=== PATIENT | female | born 1995 | race Hispanic/Latino ===

== ENCOUNTER 2019-08-05 14:39 | Emergency (ER) | payer SELFPAY ==
[2019-08-05] MEDS ORDERED: MORPHINE 4 MG/ML SYR ONE (15:48)
[2019-08-05] MEDS ORDERED: ONDANSETRON 4 MG/2 ML VIAL ONE (15:48)
--- NOTE | 2019-08-05 16:28 | RAD REPORT ---
EXAM DESCRIPTION: US - Abdomen Exam Limited - 08/05/2019 4:13 pm CLINICAL HISTORY: Abdominal pain. COMPARISON: None. FINDINGS: 2 centimeter gallstone within the gallbladder neck. Gallbladder wall is upper limits robert l thickness. Small amount of sludge is present the gallbladder. Gallbladder is distended. The biliary tree is normal caliber. IMPRESSION: Cholelithiasis with gallbladder distention
[2019-08-05 16:42] LABS: Absolute Lymphocytes (CBC) 1.9 K/uL (0.7-4.9); Hematocrit 34.8 % (36.0-45.0); Lymphocytes % 19.4 % (15.3-44.8); MPV 9.1 fL (7.6-11.3)
[2019-08-05 16:52] LABS: Albumin 4.4 g/dL (3.4-5.0); Bilirubin Direct 0.2 mg/dL (0-0.2); Bilirubin Total 0.9 mg/dL (0.2-1.0); Potassium 3.6 mmol/L (3.5-5.1)
--- NOTE | 2019-08-05 17:08 | ER ---
Nurse's Notes [facility] Name: Carlita Bosch Age: 23 yrs Sex: Female : 1995 Arrival Date: 08/05/2019 Time: 14:48 Bed 16 Private MD: Unknown, Unknown Diagnosis: Cholelithiasis Presentation: 08/05 14:59 Presenting complaint: Patient states: RUQ pain that radiates to the back, n/v x 1 week. sv denies urinary problems. Transition of care: patient was not received from another setting of care. Onset of symptoms was July 29, 2019. Risk Assessment: Do you want to hurt yourself or someone else? Patient reports no desire to harm self or others. Care prior to arrival: None. 14:59 Method Of Arrival: Ambulatory sv 14:59 Acuity: ASIM 3 sv 15:03 Initial Sepsis Screen: Does the patient meet any 2 criteria? No. Patient's initial rb1 sepsis screen is negative. Does the patient have a suspected source of infection? No. Patient's initial sepsis screen is negative. Triage Assessment: 14:59 General: Appears in no apparent distress. uncomfortable, Behavior is calm, cooperative, sv appropriate for age. Pain: Complains of pain in right upper quadrant Pain radiates to right mid back. Neuro: Level of Consciousness is awake, alert, obeys commands, Gait is steady. Respiratory: Respiratory effort is even, unlabored. 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 - Social history:: Smoking status: Patient/guardian denies using tobacco. - Ebola Screening: : Patient negative for fever greater than or equal to 101.5 degrees Fahrenheit, and additional compatible Ebola Virus Disease symptoms. Screenin:03 Abuse screen: Denies threats or abuse. Nutritional screening: No deficits noted. rb1 Tuberculosis screening: No symptoms or risk factors identified. Fall Risk None identified. Assessment: 15:03 General: Appears in no apparent distress. Behavior is calm, cooperative, Denies fever. rb1 Pain: Complains of pain in right upper quadrant Pain radiates to right mid back Pain currently is 7 out of 10 on a pain scale. Neuro: Level of Consciousness is awake, alert, obeys commands, Oriented to person, place, time, situation. Cardiovascular: Capillary refill < 3 seconds is brisk in bilateral fingers. Respiratory: Airway is patent Respiratory effort is even, unlabored, Respiratory pattern is regular, symmetrical. GI: Reports nausea. : No signs and/or symptoms were reported regarding the genitourinary system. Derm: Skin is pink, warm \T\ dry. 16:00 Reassessment: Patient appears in no apparent distress at this time. No changes from rb1 previously documented assessment. 16:58 Reassessment: Patient appears in no apparent distress at this time. Patient and/or rb1 family updated on plan of care and expected duration. Pain level reassessed. Patient is alert, oriented x 3, equal unlabored respirations, skin warm/dry/pink. 17:32 Reassessment: Patient appears in no apparent distress at this time. No changes from rb1 previously documented assessment. Vital Signs: 15:00 BP 126 / 79; Pulse 100; Resp 20; Temp 98.8; Pulse Ox 98% ; Weight 90.72 kg; Height 5 sv ft. 6 in. (167.64 cm); Pain 10/10; 16:28 BP 116 / 75; Pulse 96; Resp 17; Temp 98.2(O); Pulse Ox 99% on R/A; mh5 17:24 BP 119 / 71; Pulse 92; Resp 17; Temp 98.4(O); Pulse Ox 100% on R/A; rb1 15:00 Body Mass Index 32.28 (90.72 kg, 167.64 cm) sv ED Course: 14:48 Patient arrived in ED. ag5 14:48 Unknown, Unknown is Private Physician. ag5 15:00 Triage completed. sv 15:00 Aldair Bang PA is PHCP. jr8 15:00 Rayshawn Meza MD is Attending Physician. jr8 15:00 Deneen Candelario, JODY is Primary Nurse. rb1 15:01 Arm band placed on. sv 16:25 Patient has correct armband on for positive identification. Bed in low position. Call [facility] light in reach. Side rails up X 1. Adult w/ patient. Warm blanket given. Pulse ox on. NIBP on. 16:25 Initial lab(s) drawn, by hi, sent to lab. Inserted saline lock: 22 gauge in left [facility] antecubital area, using aseptic technique. Blood collected. 16:26 Basic Metabolic Panel Sent. 5 16:26 CBC with Diff Sent. 5 16:26 Creatinine for Radiology Sent. 5 16:26 Hepatic Function Sent. [facility] 16:26 Lipase Sent. [facility] 16:32 US Abdomen Limited In Process Unspecified. EDMI 17:07 Evan Schneider MD is Referral Physician. jr8 17:36 No provider procedures requiring assistance completed. IV discontinued, intact, rb1 bleeding controlled, No redness/swelling at site. Pressure dressing applied. Administered Medications: 16:28 Drug: morphine 4 mg Route: IVP; Site: left antecubital; rb1 16:45 Follow up: Response: No adverse reaction; Pain is decreased rb1 16:28 Drug: Zofran 4 mg Route: IVP; Site: left antecubital; rb1 16:43 Follow up: Response: No adverse reaction; Nausea is decreased [facility] Outcome: 17:08 Discharge ordered by . jr8 17:36 Patient left the ED. rb1 17:36 Discharged to home ambulatory, with significant other. rb1 17:36 Condition: stable 17:36 Discharge instructions given to patient, Instructed on discharge instructions, follow up and referral plans. medication usage, Demonstrated understanding of instructions, follow-up care, medications, Prescriptions given X 2. Signatures: Dispatcher [employer] [facility] Heather Acosta RN RN sv Roszak, Josh, PA PA 8 Deneen Candelario RN RN [facility] Marycarmen Schneider [facility] David Herrera [facility] Corrections: (The following items were deleted from the chart) 17:53 17:48 Patient left the ED. rb1 rb1
--- NOTE | 2019-08-05 17:09 | EDPHYS ---
Physician Documentation [facility] Name: Carlita Bosch Age: 23 yrs Sex: Female : 1995 Arrival Date: 08/05/2019 Time: 14:48 Bed 16 Private MD: Unknown, Unknown ED Physician Rayshawn Meza HPI: 08/05 16:49 This 23 yrs old Female presents to ER via Ambulatory with complaints of jr8 abdominal pain, back pain. 16:49 The patient presents with abdominal pain in the right upper quadrant. Onset: The jr8 symptoms/episode began/occurred acutely, today. The symptoms radiate to right back. Associated signs and symptoms: Pertinent positives: nausea and vomiting. The symptoms are described as stabbing. Modifying factors: The symptoms are alleviated by nothing, the symptoms are aggravated by food. Severity of pain: At its worst the pain was moderate in the emergency department the pain is unchanged. The patient has not recently seen a physician. 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 - Social history:: Smoking status: Patient/guardian denies using tobacco. - Ebola Screening: : Patient negative for fever greater than or equal to 101.5 degrees Fahrenheit, and additional compatible Ebola Virus Disease symptoms. ROS: 16:49 Constitutional: Negative for fever, chills, and weight loss. jr8 16:49 Abdomen/GI: Positive for abdominal pain, nausea and vomiting, Negative for diarrhea, constipation, abdominal cramps, abdominal distension, hematemesis, black/tarry stool, rectal pain, rectal bleeding, bowel incontinence, flatulence. 16:49 All other systems are negative. Exam: 16:49 Eyes: Pupils equal round and reactive to light, extra-ocular motions intact. Lids and jr8 lashes normal. Conjunctiva and sclera are non-icteric and not injected. Cornea within normal limits. Periorbital areas with no swelling, redness, or edema. ENT: Nares patent. No nasal discharge, no septal abnormalities noted. Tympanic membranes are normal and external auditory canals are clear. Oropharynx with no redness, swelling, or masses, exudates, or evidence of obstruction, uvula midline. Mucous membranes moist. Neck: Trachea midline, no thyromegaly or masses palpated, and no cervical lymphadenopathy. Supple, full range of motion without nuchal rigidity, or vertebral point tenderness. No Meningismus. Cardiovascular: Regular rate and rhythm with a normal S1 and S2. No gallops, murmurs, or rubs. Normal PMI, no JVD. No pulse deficits. Respiratory: Lungs have equal breath sounds bilaterally, clear to auscultation and percussion. No rales, rhonchi or wheezes noted. No increased work of breathing, no retractions or nasal flaring. Back: No spinal tenderness. No costovertebral tenderness. Full range of motion. Skin: Warm, dry with normal turgor. Normal color with no rashes, no lesions, and no evidence of cellulitis. MS/ Extremity: Pulses equal, no cyanosis. Neurovascular intact. Full, normal range of motion. Neuro: Awake and alert, GCS 15, oriented to person, place, time, and situation. Cranial nerves II-XII grossly intact. Motor strength 5/5 in all extremities. Sensory grossly intact. Cerebellar exam normal. Normal gait. 16:49 Abdomen/GI: Inspection: obese Bowel sounds: active, all quadrants, Palpation: soft, in all quadrants, moderate abdominal tenderness, in the right upper quadrant, mass, is not appreciated, rebound tenderness, is not appreciated, voluntary guarding, is not appreciated, involuntary guarding, is not appreciated, no appreciated organomegaly, Indicators: McBurney's point is not tender, Hanna's sign is positive, Rovsing's sign is negative, Liver: tenderness, is not appreciated. Vital Signs: 15:00 BP 126 / 79; Pulse 100; Resp 20; Temp 98.8; Pulse Ox 98% ; Weight 90.72 kg; Height 5 sv ft. 6 in. (167.64 cm); Pain 10/10; 16:28 BP 116 / 75; Pulse 96; Resp 17; Temp 98.2(O); Pulse Ox 99% on R/A; mh5 17:24 BP 119 / 71; Pulse 92; Resp 17; Temp 98.4(O); Pulse Ox 100% on R/A; rb1 15:00 Body Mass Index 32.28 (90.72 kg, 167.64 cm) sv MDM: 15:32 Patient medically screened. jr8 17:06 Data reviewed: vital signs, nurses notes, lab test result(s), radiologic studies, jr8 ultrasound. Data interpreted: Pulse oximetry: on room air is 99 %. Interpretation: normal. Counseling: I had a detailed discussion with the patient and/or guardian regarding: the historical points, exam findings, and any diagnostic results supporting the discharge/admit diagnosis, lab results, radiology results, the need for outpatient follow up, a general surgeon, to return to the emergency department if symptoms worsen or persist or if there are any questions or concerns that arise at home. Response to treatment: the patient's symptoms have markedly improved after treatment. ED course: Patient non toxic. No acute abdomen on physical exam and reexamination. Labs WNL. Detailed discussion with patient about US findings. Patient will f/u with general surgery and call tomorrow to get next available appointment. Knows to come back if worse or she starts running fever . 08/05 15:32 Order name: Basic Metabolic Panel; Complete Time: 17:00 8 08/05 15:32 Order name: CBC with Diff; Complete Time: 17:00 jr8 08/05 15:32 Order name: Creatinine for Radiology; Complete Time: 17:00 jr8 08/05 15:32 Order name: Hepatic Function; Complete Time: 17:00 jr8 08/05 15:32 Order name: Lipase; Complete Time: 17:00 jr8 08/05 15:32 Order name: US Abdomen Limited; Complete Time: 16:50 8 08/05 15:32 Order name: IV Saline Lock; Complete Time: 16:26 jr8 08/05 15:32 Order name: Labs collected and sent; Complete Time: 16:26 jr8 Administered Medications: 16:28 Drug: morphine 4 mg Route: IVP; Site: left antecubital; rb1 16:45 Follow up: Response: No adverse reaction; Pain is decreased rb1 16:28 Drug: Zofran 4 mg Route: IVP; Site: left antecubital; rb1 16:43 Follow up: Response: No adverse reaction; Nausea is decreased rb1 Disposition: 08/06 07:14 Co-signature as Attending Physician, Rayshawn Meza MD I agree with the assessment and kdr plan of care. Disposition: 08/05/19 17:08 Discharged to Home. Impression: Cholelithiasis. - Condition is Stable. - Discharge Instructions: Cholelithiasis. - Prescriptions for Tylenol- Codeine #3 300-30 mg Oral Tablet - take 2 tablets by ORAL route every 6 hours As needed; 12 tablet. Zofran 4 mg Oral Tablet - take 1 tablet by ORAL route every 12 hours As needed; 20 tablet. - SBAR form, Medication Reconciliation Form, Thank You Letter, Antibiotic Education, Prescription Opioid Use form. - Follow up: Evan Schneider MD; When: Tomorrow; Reason: Recheck today's complaints, Continuance of care, Re-evaluation by your physician. - Problem is new. - Symptoms have improved. Signatures: Dispatcher [employer] Heather Calloway, RN RN Rayshawn Edmondson MD MD [facility] Aldair Bang PA PA jr8 Deneen Candelario, RN RN rb1 Corrections: (The following items were deleted from the chart) 08/05 17:48 17:08 08/05/2019 17:08 Discharged to Home. Impression: Cholelithiasis. Condition is rb1 Stable. Forms are Medication Reconciliation Form, Thank You Letter, Antibiotic Education, Prescription Opioid Use. Follow up: Evan Schneider; When: Tomorrow; Reason: Recheck today's complaints, Continuance of care, Re-evaluation by your physician. Problem is new. Symptoms have improved. jr8
[2019-08-05 18:54] VITALS: BP 116/75; TEMP 98.2; O2SAT 99
== END 2019-08-05 17:48 | disposition home or self-care (01) ==
LOC: ER 14:39
DX: K80.20 Calculus of gallbladder without cholecystitis without obstruction (principal)
CPT/HCPCS: 36415; 76705; 80048; 80076; 83690; 85025; 96374; 96375; 99284; J2405

== ENCOUNTER 2019-08-07 21:01 | Observation (INO) | payer SELFPAY ==
[2019-08-07] MEDS ORDERED: ONDANSETRON 4 MG/2 ML VIAL ONE (21:33)
[2019-08-07] MEDS ORDERED: NA CHLORIDE 0.9% 1,000 ML ONE (21:33)
[2019-08-07] MEDS ORDERED: MORPHINE 4 MG/ML SYR ONE (21:33)
[2019-08-07 21:58] LABS: Absolute Lymphocytes (CBC) 2.8 K/uL (0.7-4.9); Basophils % 0.7 % (0-1.3); Lymphocytes % 25.1 % (15.3-44.8); MPV 9.1 fL (7.6-11.3); RBC Red Blood Cell Count 4.74 M/uL (3.86-4.86)
[2019-08-07 22:03] LABS: Albumin 4.5 g/dL (3.4-5.0); Bilirubin Direct 0.2 mg/dL (0-0.2); Bilirubin Total 0.8 mg/dL (0.2-1.0); Potassium 3.2 mmol/L (3.5-5.1)
[2019-08-07] MEDS ORDERED: PIPER/TAZO/NS 3.375gm 3.375 GM/100 ML BAG ONE (22:29)
--- NOTE | 2019-08-08 00:13 | ER ---
Nurse's Notes [facility] Name: Carlita Bosch Age: 23 yrs Sex: Female : 1995 Arrival Date: 08/07/2019 Time: 21:06 Bed 19 Private MD: Diagnosis: Cholelithiasis;Right upper quadrant pain;Right upper quadrant abdominal tenderness Presentation: 08/07 21:07 Presenting complaint: Patient states: dx with gall stones two days ago, pain is worse, la1 not tolerating PO. Transition of care: patient was not received from another setting of care. Onset of symptoms was August 07, 2019. Risk Assessment: Do you want to hurt yourself or someone else? Patient reports no desire to harm self or others. Initial Sepsis Screen: Does the patient meet any 2 criteria? HR > 90 bpm. Care prior to arrival: None. 21:07 Method Of Arrival: Ambulatory la1 21:07 Acuity: ASIM 3 la1 22:42 Initial Sepsis Screen: Does the patient have a suspected source of infection? No. lp1 Patient's initial sepsis screen is negative. 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 - Social history:: Smoking status: Patient/guardian denies using tobacco. - Ebola Screening: : No symptoms or risks identified at this time. Screenin:15 Abuse screen: Denies threats or abuse. Denies injuries from another. Nutritional lp1 screening: No deficits noted. Tuberculosis screening: No symptoms or risk factors identified. Fall Risk None identified. Assessment: 21:20 General: Appears uncomfortable, Behavior is appropriate for age. Pain: Complains of lp1 pain in epigastric area Pain radiates to back Pain currently is 8 out of 10 on a pain scale. Neuro: Level of Consciousness is awake, alert, obeys commands, Oriented to person, place, time, situation. Cardiovascular: Patient's skin is warm and dry. Respiratory: Respiratory effort is even, unlabored. GI: Abdomen is round non-distended, Bowel sounds present X 4 quads. Abdomen is tender to palpation in epigastric area. : No signs and/or symptoms were reported regarding the genitourinary system. EENT: No signs and/or symptoms were reported regarding the EENT system. Derm: Skin is pink, warm \T\ dry. Musculoskeletal: No deficits noted. 22:15 Reassessment: Patient appears in no apparent distress at this time. Patient is alert, lp1 oriented x 3, equal unlabored respirations, skin warm/dry/pink. Patient states feeling better. Patient states symptoms have improved. 22:39 Reassessment: Patient appears in no apparent distress at this time. Patient states lp1 tolerable pain radiating to back. 23:30 Reassessment: Patient appears in no apparent distress at this time. Patient and/or lp1 family updated on plan of care and expected duration. Pain level reassessed. Patient is alert, oriented x 3, equal unlabored respirations, skin warm/dry/pink. 23:45 Reassessment: Provider at bedside to discuss results with patient and plan of care. lp1 Vital Signs: 21:08 BP 129 / 88; Pulse 110; Resp 16; Temp 98.2; Pulse Ox 100% on R/A; Weight 104.33 kg; la1 22:38 BP 110 / 82; Pulse 79; Resp 18; Pulse Ox 100% on R/A; Pain 5/10; lp1 23:30 BP 111 / 76; Pulse 86; Resp 18; Pulse Ox 98% on R/A; lp1 11/10 00:39 BP 120 / 88; Pulse 90; Resp 18; Temp 98.1(O); Pulse Ox 99% on R/A; lp1 ED Course: 08/07 21:06 Patient arrived in ED. cf2 21:08 Triage completed. la1 21:09 Arm band placed on left wrist. la1 21:13 Aldair Bang PA is PHCP. jr8 21:13 Rayshawn Meza MD is Attending Physician. jr8 21:30 Lou Gupta RN is Primary Nurse. lp1 21:38 Patient has correct armband on for positive identification. la1 21:38 No provider procedures requiring assistance completed. Inserted saline lock: 20 gauge la1 in right antecubital area, using aseptic technique. Blood collected. 08/08 00:11 Ashley Mosley MD is Hospitalizing Provider. jr8 00:33 Patient admitted, IV remains in place. lp1 Administered Medications: 08/07 21:39 Drug: morphine 4 mg Route: IVP; Site: right antecubital; la1 22:00 Follow up: Response: Pain is decreased; RASS: Alert and Calm (0) lp1 21:39 Drug: Zofran 4 mg Route: IVP; Site: right antecubital; la1 22:00 Follow up: Response: No adverse reaction lp1 21:39 Drug: NS 0.9% 1000 ml Route: IV; Rate: 1000 ml; Site: right antecubital; la1 22:23 Follow up: IV Status: Completed infusion; IV Intake: 1000ml lp1 22:38 Drug: Zosyn 3.375 grams Route: IVPB; Infused Over: 60 mins; Site: right antecubital; lp1 23:40 Follow up: IV Status: Completed infusion; IV Intake: 100ml lp1 Intake: 22:23 IV: 1000ml; Total: 1000ml. lp1 23:40 IV: 100ml; Total: 1100ml. lp1 Outcome: 08/08 00:12 Decision to Hospitalize by Provider. ashley 00:33 Condition: stable lp1 00:33 Instructed on the need for admit. 00:38 Admitted to Tele family with patient, via wheelchair, room 424, with chart, Report lp1 called to JODY silverio 00:50 Patient left the ED. lp1 Signatures: Lou Gupta, RN RN lp1 Aldair Bang PA PA jrSaul Guerrier RN RN la1 Missy Hsieh 2
--- NOTE | 2019-08-08 00:13 | EDPHYS ---
Physician Documentation [facility] Name: Carlita Bosch Age: 23 yrs Sex: Female : 1995 Arrival Date: 08/07/2019 Time: 21:06 Bed 19 Private MD: ED Physician Rayshawn Meza HPI: 08/07 23:19 This 23 yrs old Female presents to ER via Ambulatory with complaints of jr8 Abdominal Pain. 23:19 The patient presents with abdominal pain in the right upper quadrant. Onset: The jr8 symptoms/episode began/occurred gradually, 2 day(s) ago. The symptoms do not radiate. Associated signs and symptoms: Pertinent positives: nausea and vomiting. The symptoms are described as stabbing. Modifying factors: The symptoms are alleviated by nothing, the symptoms are aggravated by food. Severity of pain: At its worst the pain was moderate in the emergency department the pain has improved mildly. The patient has experienced a previous episode. The patient has been recently seen by a physician: The patient has been recently seen at the [facility] Emergency Department, this week, for similar complaints labs were performed, an ultrasound was performed, given IM/IV antibiotics, was given a prescription for pain medications, was given a prescription for an antiemetic, the patient was told to return for a recheck. Patient seen and diagnosed with cholelithiasis a few days ago. Was doing well until yesterday. Stated that pain came back and now has not been able to keep anything down . DENSITOMETRIST: 21:09 LMP 07/23/2019 la1 Historical: - Allergies: 21:08 No Known Allergies; la1 - PMHx: 21:08 None; la1 - Immunization history:: Adult Immunizations up to date. - Social history:: Smoking status: Patient/guardian denies using tobacco. - Ebola Screening: : No symptoms or risks identified at this time. ROS: 23:19 Eyes: Negative for injury, pain, redness, and discharge, ENT: Negative for injury, jr8 pain, and discharge, Neck: Negative for injury, pain, and swelling, Cardiovascular: Negative for chest pain, palpitations, and edema, Respiratory: Negative for shortness of breath, cough, wheezing, and pleuritic chest pain, Back: Negative for injury and pain, MS/Extremity: Negative for injury and deformity, Skin: Negative for injury, rash, and discoloration, Neuro: Negative for headache, weakness, numbness, tingling, and seizure. 23:19 Abdomen/GI: Positive for abdominal pain, nausea and vomiting, Negative for diarrhea, constipation, abdominal cramps, abdominal distension, anorexia, dysphagia, hematemesis, black/tarry stool, rectal pain, rectal bleeding, bowel incontinence, flatulence. Exam: 23:19 Eyes: Pupils equal round and reactive to light, extra-ocular motions intact. Lids and jr8 lashes normal. Conjunctiva and sclera are non-icteric and not injected. Cornea within normal limits. Periorbital areas with no swelling, redness, or edema. ENT: Nares patent. No nasal discharge, no septal abnormalities noted. Tympanic membranes are normal and external auditory canals are clear. Oropharynx with no redness, swelling, or masses, exudates, or evidence of obstruction, uvula midline. Mucous membranes moist. Cardiovascular: Regular rate and rhythm with a normal S1 and S2. No gallops, murmurs, or rubs. Normal PMI, no JVD. No pulse deficits. Respiratory: Lungs have equal breath sounds bilaterally, clear to auscultation and percussion. No rales, rhonchi or wheezes noted. No increased work of breathing, no retractions or nasal flaring. Abdomen/GI: Soft with mild tenderness to RUQ. Negative Hanna sign. Normal bowel sounds. No distension or tympany. No guarding or rebound. Back: No spinal tenderness. No costovertebral tenderness. Full range of motion. Skin: Warm, dry with normal turgor. Normal color with no rashes, no lesions, and no evidence of cellulitis. MS/ Extremity: Pulses equal, no cyanosis. Neurovascular intact. Full, normal range of motion. Neuro: Awake and alert, GCS 15, oriented to person, place, time, and situation. Cranial nerves II-XII grossly intact. Motor strength 5/5 in all extremities. Sensory grossly intact. Cerebellar exam normal. Normal gait. Vital Signs: 21:08 BP 129 / 88; Pulse 110; Resp 16; Temp 98.2; Pulse Ox 100% on R/A; Weight 104.33 kg; la1 22:38 BP 110 / 82; Pulse 79; Resp 18; Pulse Ox 100% on R/A; Pain 5/10; lp1 23:30 BP 111 / 76; Pulse 86; Resp 18; Pulse Ox 98% on R/A; lp1 08/08 00:39 BP 120 / 88; Pulse 90; Resp 18; Temp 98.1(O); Pulse Ox 99% on R/A; lp1 MDM: 08/07 21:13 Patient medically screened. [facility] 08/08 00:10 Data reviewed: vital signs, nurses notes, lab test result(s). Data interpreted: Pulse 8 oximetry: on room air is 98 %. Interpretation: normal. Counseling: I had a detailed discussion with the patient and/or guardian regarding: the historical points, exam findings, and any diagnostic results supporting the discharge/admit diagnosis, lab results, the need for further work-up and treatment in the hospital. ED course: Patient still nauseated. Pain improved but not gone. Called Dr. Jones who will see patient. Admit to medicine. . 08/07 21:13 Order name: Basic Metabolic Panel; Complete Time: 22:03 [facility] 08/07 21:13 Order name: CBC with Diff; Complete Time: 22:03 [facility] 08/07 21:13 Order name: Creatinine for Radiology; Complete Time: 22:07 [facility] 08/07 21:13 Order name: Hepatic Function; Complete Time: 22: [facility] 08/07 21:13 Order name: Lipase; Complete Time: 22: [facility] 08/07 21:13 Order name: IV Saline Lock; Complete Time: 21:39 [facility] 08/07 21:13 Order name: Labs collected and sent; Complete Time: :39 [facility] 08/08 00:28 Order name: CONS Physician Consult EDMS Administered Medications: 08/07 21:39 Drug: morphine 4 mg Route: IVP; Site: right antecubital; la1 22:00 Follow up: Response: Pain is decreased; RASS: Alert and Calm (0) lp1 21:39 Drug: Zofran 4 mg Route: IVP; Site: right antecubital; la1 22:00 Follow up: Response: No adverse reaction lp1 21:39 Drug: NS 0.9% 1000 ml Route: IV; Rate: 1000 ml; Site: right antecubital; la1 22:23 Follow up: IV Status: Completed infusion; IV Intake: 1000ml lp1 22:38 Drug: Zosyn 3.375 grams Route: IVPB; Infused Over: 60 mins; Site: right antecubital; lp1 23:40 Follow up: IV Status: Completed infusion; IV Intake: 100ml lp1 Disposition: 08/08 06:17 Co-signature as Attending Physician, Rayshawn Meza MD I agree with the assessment and kdr plan of care. Disposition: 08/08/19 00:12 Hospitalization ordered by Ashley Mosley for Observation. Preliminary diagnosis are Cholelithiasis, Right upper quadrant pain, Right upper quadrant abdominal tenderness. - Bed requested for Telemetry/MedSurg (observation). - Status is Observation. lp1 - Condition is Stable. - Problem is new. - Symptoms have improved. UTI on Admission? No Signatures: Dispatcher [employer] EDDinah Jernigan RN RN aa1 Rayshawn Meza MD MD kdr Pena, Laura, RN RN lp1 Aldair Bang PA PA jr8 Saul Cadena RN RN la1 Corrections: (The following items were deleted from the chart) 00:16 00:12 Hospitalization Ordered by Ashley Mosley MD for Observation. Preliminary aa1 diagnosis is Cholelithiasis; Right upper quadrant pain; Right upper quadrant abdominal tenderness. Bed requested for Telemetry/MedSurg (observation). Status is Observation. Condition is Stable. Problem is new. Symptoms have improved. UTI on Admission? No. jr8 00:50 00:16 08/08/2019 00:12 Hospitalization Ordered by Ashley Mosley MD for Observation. lp1 Preliminary diagnosis is Cholelithiasis; Right upper quadrant pain; Right upper quadrant abdominal tenderness. Bed requested for Telemetry/MedSurg (observation). Status is Observation. Condition is Stable. Problem is new. Symptoms have improved. UTI on Admission? No. aa1
[2019-08-08] MEDS ORDERED: ACETAMINOPHEN 500 MG TAB PO PRN (01:18)
[2019-08-08 01:37] VITALS: BMI 35.7
[2019-08-08] MEDS: D5 0.45 NS 1,000 ML IV SCH ×4 (01:42→21:42)
[2019-08-08] MEDS: ONDANSETRON 4 MG/2 ML VIAL IV PRN ×3 (01:42→14:32)
[2019-08-08] MEDS: MORPHINE 4 MG/ML SYR IV PRN ×4 (01:42→19:50)
[2019-08-08] MEDS: KCL 20 MEQ/100 mL IVPB 20 MEQ/100 ML BAG IV SCH ×2 (02:09→06:01)
[2019-08-08 05:32] LABS: Urine Appearance CLEAR; Urine Blood NEGATIVE (NEG); Urine Color DK YELLOW; Urine Glucose NEGATIVE (NEG); Urine Protein TRACE (NEG); Urine Specific Gravity >=1.030 (1.005-1.030)
[2019-08-08 05:36] LABS: Basophils % 0.7 % (0-1.3); Hematocrit 30.2 % (36.0-45.0); Lymphocytes % 24.5 % (15.3-44.8); MPV 8.8 fL (7.6-11.3); RBC Red Blood Cell Count 4.22 M/uL (3.86-4.86)
[2019-08-08 05:37] LABS: Urine Microscopic Reflex ORDER UMIC
[2019-08-08 05:38] LABS: Protime INR 1.23
[2019-08-08 05:38] LABS: Urine Bilirubin NEGATIVE (NEG)
[2019-08-08 05:48] LABS: ALT/SGPT 81 U/L (12-78); AST/SGOT 120 U/L (15-37); Albumin 3.8 g/dL (3.4-5.0); Alkaline Phosphatase 78 U/L (45-117); BUN Blood Urea Nitrogen 12 mg/dL (7-18); Bicarbonate 26 mmol/L (21-32); Bilirubin Direct 0.3 mg/dL (0-0.2); Bilirubin Total 0.9 mg/dL (0.2-1.0); Glucose Level 101 mg/dL (74-106); Lipase 33 U/L (73-393); Potassium 3.8 mmol/L (3.5-5.1); Protein, Total 7.8 g/dL (6.4-8.2); Sodium Level 138 mmol/L (136-145)
[2019-08-08 06:20] LABS: Urine Bacteria <20 /HPF (<20); Urine Culture Reflex Order REFLEXED; Urine RBC <5 /HPF (NONE SEEN)
--- NOTE | 2019-08-08 08:00 | P.HP ---
Certification for Inpatient Patient admitted to: Observation With expected LOS: <2 Midnights Patient will require the following post-hospital care: None Practitioner: I am a practitioner with admitting privileges, knowledge of patient current condition, hospital course, and medical plan of care. Services: Services provided to patient in accordance with Admission requirements found in Title 42 Section 412.3 of the Code of Federal Regulations Patient History Date of Service: 08/08/19 Reason for admission: Acute cholelithiasis w/ abdominal pain along with nausea and vomiting History of Present Illness: Patient is a 23-year-old female who came to the hospital with abdominal discomfort and nausea and vomiting. Patient was found to have gallstones a couple of days prior. Her pain resolved the following day, but yesterday morning she started having nausea and vomiting. Patient has severe abdominal pain as well. In the emergency room physician spoke with the surgeon in recommendation was to admit the patient to the hospital for evaluation in the morning. We will medically manage the patient while in the hospital. Await surgical intervention in a.m. Allergies No Known Allergies Allergy (Unverified 01/15/16 00:55) Home Medications: NK [No Home Meds] 08/08/19 - Past Medical/Surgical History -: Cholelithiasis Past Surgical History: Patient denies surgical history - Family History Father History Unknown: Yes Mother Notes: bipolar - Social History Smoking Status: Never smoker Alcohol use: Yes CD- Drugs: No Caffeine use: Yes Place of Residence: Home Review of Systems 10-point ROS is otherwise unremarkable Physical Examination - Vital Signs Temperature: 98.2 F Blood Pressure: 119/72 Pulse: 97 Respirations: 16 Pulse Ox (%): 100 - Physical Exam General: Alert, In no apparent distress, Oriented x3 HEENT: Atraumatic, PERRLA, Mucous membr. moist/pink, EOMI, Sclerae nonicteric Neck: Supple, 2+ carotid pulse no bruit, No LAD, Without JVD or thyroid abnormality Respiratory: Clear to auscultation bilaterally, Normal air movement Cardiovascular: Regular rate/rhythm, Normal S1 S2, No murmurs Gastrointestinal: Normal bowel sounds, Soft and benign, Non-distended, No guarding, Tenderness, Rebound Musculoskeletal: No clubbing, No swelling, No tenderness Integumentary: No rashes Neurological: Normal gait, Normal speech, Normal strength at 5/5 x4 extr, Normal tone, Sensation intact, Cranial nerves 3-12 intact, Normal affect Lymphatics: No axilla or inguinal lymphadenopathy - Studies Laboratory Data (last 24 hrs) 08/07/19 21:30: Creatinine 0.94 08/07/19 21:30: WBC 11.1 H D, Hgb 10.7 L, Hct 34.0 L, Plt Count 365 08/07/19 21:30: Sodium 137, Potassium 3.2 L, BUN 13, Creatinine 0.91, Glucose 101, Total Bilirubin 0.8, AST 35, ALT 41, Alkaline Phosphatase 78, Lipase 34 L Assessment & Plan - Problems (Diagnosis) (1) Abdominal pain Current Visit: Yes Status: Acute (2) Gallstones with obstruction of gallbladder Current Visit: Yes Status: Acute (3) Intractable nausea and vomiting Current Visit: Yes Status: Acute - Plan 1. Continue with IV hydration 2. Continue with IV antibiotics 3. Continue with pain control 4. NPO 5. General surgery consultation; since the gallstone is at the neck of the gallbladder possible laparoscopic cholecystectomy for curative intervention 6. Serial H&H, and we will monitor CBC, BMP, LFTs and lipase along with electrolytes. 7. GI and DVT prophylaxis Discharge Plan: Home Plan to discharge in: 48 Hours - Advance Directives Does patient have a Living Will: No Does patient have a Durable POA for Healthcare: No - Code Status/Comfort Care Code Status Assessed: Yes Code Status: Full Code Critical Care: No Time Spent Managing PTS Care (In Minutes): 45
[2019-08-08] MEDS: PIPER/TAZO/NS 3.375gm 3.375 GM/100 ML BAG IVPB SCH ×2 (09:20→16:43)
--- NOTE | 2019-08-08 11:41 | CON ---
Date of Consultation: 08/08/2019 Brief History Of Present Illness: Patient is a 23-year-old female who presents to hospital with abdominal pain, nausea, vomiting. She was found to have a gallstone a few days prior on the via ultrasound. She did not have any other concerning findings and was discharged that day. She had been eating fried shrimp earlier that day. She went home and drank some liquids and so forth and her insists that she was n.p.o. at that time. However, the patient admits to eating things that were not within the dietary restriction of gallbladder attacks and as such, she had a recurrence of abdominal pain last night and came with the above-stated complaints. She had nausea, vomiting, recurrence of the right upper quadrant, abdominal pain with radiation through to the back. At this point; however, it is significantly better. She is up moving around in bed. She is sitting up, changing positions frequently, rolling over in the bed comfortable, smiling the entire time during our interview. She appears to be in no pain. She explains that she only has mild soreness like a muscle soreness to the right upper quadrant at this point, and it is significantly improved. She has no more nausea, but she did have an episode of vomiting this morning, she believes. Past Medical History: Significant for cholelithiasis as described. Surgical History: She denies any surgical history. Allergies: SHE DENIES ANY ALLERGIES. Home Medications: She states that she has had multiple episodes like this in the past over the course of 2 years and has not changed her diet and has not been compliant with dietary restrictions. Review of Systems: A 10-point review of systems other than HPI, denies. Physical Examination: Vital Signs: At the time of examination her BMI is 36. Her blood pressure 119/ 72, pulse is 97, respiratory rate is 16, temperature 98.2. General: She is awake, alert, and oriented. Psychiatric: She is appropriate. Conversive. She is smiling during our exam and appears to be completely comfortable without any discomfort. HEENT: She is normocephalic. Her sclerae are anicteric. She has no subungual jaundice. Her oropharynx is clear. Neck: Supple. No JVD. Chest: Normal expansion and excursion. Cardiovascular: Regular rate and rhythm. Pulmonary: Clear to auscultation bilaterally. Abdomen: Soft, obese, nontender, nondistended. Negative Hanna sign negative. No rebound. No guarding. No focal peritonitis. Extremities: No clubbing, cyanosis, or edema. Laboratory Data: Reveals a white blood cell count of 8.0, hemoglobin 9.9 over hematocrit of 30.2, platelet count is 289. Her PT 14.4, INR 1.2, PTT is 31.3. Her sodium 138, potassium 3.8, chloride 105, carbon dioxide 26, BUN 12, creatinine is 0.7. Her total bilirubin is 0.9, direct component 0.3, AST 120, ALT 81, alkaline phosphatase is 78, lipase is 33. She had no imaging on this particular occasion. Her last imaging was an abdominal ultrasound on 08/05 which is officially read as cholelithiasis with gallbladder distention, 2 cm gallstone is evident. The gallbladder is upper limits of normal thickness. Small amount of sludge present in the gallbladder. 2 cm gallstone within the gallbladder neck. The biliary tree is normal in caliber. Assessment And Plan: This is a 23-year-old female who has symptomatic cholelithiasis and biliary colic. 1. I have explained dietary modification as well as surgical intervention. I have explained the risks, benefits, and alternatives of laparoscopic, possible open cholecystectomy including but not limited to bleeding, infection, damage to surrounding tissue, injury to bile ducts and intestines. I have also explained that the patient must be compliant with dietary modification going forward around the perioperative period and that she has no acute pain at this time. I have explained this to her and herself and they agree to proceed as indicated. Will plan for surgery, recheck labs in AM as there is elevation in LFT. KOURTNEY/COREY Voice ID: [id number] Report ID: [id number] WALTER
--- NOTE | 2019-08-08 12:49 | P.DS ---
Admission Date: 08/08/19 Discharge Date: 08/08/19 Disposition: ROUTINE DISCHARGE Discharge Condition: GOOD Reason for Admission: Acute cholelithiasis w/ abdominal pain along with nausea and vomiting Consultations: General surgery-Dr. Jones Procedures: None Brief History of Present Illness: 23 Year old woman center to the emergency department with a complaint of nausea and vomiting and abdominal pain. She was in emergency department 3 days ago for similar symptoms. Ultrasound reported gallstones and distended gallbladder. Patient was discharged for outpatient followup but returned to the ED today with nausea and vomiting and abdominal pain. Her liver enzymes were mildly elevated. The patient was placed under observation to be evaluated by general surgery. Hospital Course: Patient was evaluated by general surgery-Dr. Jones. Dr. Jones determined that patient does not need emergent cholecystectomy as she is now asymptomatic and recommended follow up with him as outpatient for elective cholecystectomy. He recommended low-fat diet for her. She is therefore discharged to follow with Dr. Jones within a week or 2. Vital Signs/Physical Exam: Temp Pulse Resp BP Pulse Ox 98 F 88 18 146/86 H 98 08/08/19 12:00 08/08/19 12:00 08/08/19 12:00 08/08/19 12:00 08/08/19 12:00 General: Alert, In no apparent distress, Oriented x3 HEENT: Mucous membr. moist/pink Neck: Supple, JVD not distended Respiratory: Clear to auscultation bilaterally, Normal air movement Cardiovascular: No edema, Normal pulses, Regular rate/rhythm, Normal S1 S2 Gastrointestinal: Normal bowel sounds, Soft and benign, Non-distended, No tenderness Musculoskeletal: No swelling Integumentary: No rashes Laboratory Data at Discharge: WBC 8.0 K/uL (4.3-10.9) D 08/08/19 05:18 Hgb 9.9 g/dL (12.0-15.0) L 08/08/19 05:18 Hct 30.2 % (36.0-45.0) L 08/08/19 05:18 Plt Count 289 K/uL (152-406) D 08/08/19 05:18 PT 14.4 SECONDS (9.5-12.5) H 08/08/19 05:18 INR 1.23 08/08/19 05:18 APTT 31.3 SECONDS (24.3-36.9) 08/08/19 05:18 Sodium 138 mmol/L (136-145) 08/08/19 05:18 Potassium 3.8 mmol/L (3.5-5.1) 08/08/19 05:18 BUN 12 mg/dL (7-18) 08/08/19 05:18 Creatinine 0.77 mg/dL (0.55-1.3) 08/08/19 05:18 Glucose 101 mg/dL (74-106) 08/08/19 05:18 Phosphorus 3.4 mg/dL (2.5-4.9) 08/08/19 05:18 Magnesium 2.0 mg/dL (1.8-2.4) 08/08/19 05:18 Total Bilirubin 0.9 mg/dL (0.2-1.0) 08/08/19 05:18 AST 120 U/L (15-37) H 08/08/19 05:18 ALT 81 U/L (12-78) H 08/08/19 05:18 Alkaline Phosphatase 78 U/L (45-117) 08/08/19 05:18 Lipase 33 U/L (73-393) L 08/08/19 05:18 Home Medications: Ondansetron [Zofran] 4 mg PO Q8H PRN #15 tab 08/08/19 New Medications: Ondansetron [Zofran] 4 mg PO Q8H PRN #15 tab PRN Reason: Nausea / Vomiting Diet: Low fat Activity: Ad toshia Followup: Roland Jones MD [ACTIVE - CAN ADMIT] - 1-2 Weeks
--- NOTE | 2019-08-08 13:04 | RAD REPORT ---
EXAM DESCRIPTION: US - Abdomen Exam Limited - 08/08/2019 12:25 pm CLINICAL HISTORY: Abdominal pain. FINDINGS: A 2 centimeter gallstone is lodged in the neck of the gallbladder. The gallbladder is dist ended with small to moderate amount of sludge. The gallbladder wall measures 7 millimeters. There is equivocal small amount pericholecystic fluid. The biliary tree is normal caliber. IMPRESSION: Cholelithiasis. Gallbladder distention. Thickened gallbladder wall likely indicating cho lecystitis.
--- NOTE | 2019-08-08 14:55 | P.PN ---
Date of Service: 08/08/19 Patient seen and examined. Right upper quadrant ultrasound results reviewed. It reports cholelithiasis with thickened gallbladder consistent with cholecystitis. Also noted her liver enzymes-AST, ALT are elevated. Total bilirubin and ALP not elevated. Patient seen by Dr. Jones. He reviewed the right upper quadrant sono result and has concern for CBD dilatation. Radiology report on the ultrasound suggested normal biliary tree. Dr. Jones recommended transfer to a center with GI for evaluation. Transfer to [facility] attempted. They determined transfer is not urgent. They recommended to continue workup here, get GI to see her tomorrow to determine whether she will needs ERCP before transfer for ERCP. Will order MRCP and GI consult for tomorrow. Clear liquid diet today the patient will tolerate it. Patient will also need cholecystectomy for cholecystitis. General surgery also to follow.
[2019-08-08] MEDS: ENOXAPARIN 40 MG/0.4 ML SQ SCH (17:04)
[2019-08-08] MEDS ORDERED: KCL 20 MEQ/100 mL IVPB 20 MEQ/100 ML BAG IV SCH (19:00)
[2019-08-09] MEDS: PIPER/TAZO/NS 3.375gm 3.375 GM/100 ML BAG IVPB SCH ×2 (00:17→08:42)
[2019-08-09] MEDS: MORPHINE 4 MG/ML SYR IV PRN ×3 (00:17→09:55)
[2019-08-09] MEDS: ONDANSETRON 4 MG/2 ML VIAL IV PRN (02:51)
[2019-08-09 04:33] LABS: Absolute Lymphocytes (CBC) 1.3 K/uL (0.7-4.9); Basophils % 0.9 % (0-1.3); Lymphocytes % 18.5 % (15.3-44.8); MPV 9.1 fL (7.6-11.3); RBC Red Blood Cell Count 4.28 M/uL (3.86-4.86)
[2019-08-09 04:39] LABS: ALT/SGPT 140 U/L (12-78); AST/SGOT 155 U/L (15-37); Albumin 3.8 g/dL (3.4-5.0); Alkaline Phosphatase 89 U/L (45-117); BUN Blood Urea Nitrogen 4 mg/dL (7-18); Bicarbonate 26 mmol/L (21-32); Bilirubin Direct 0.6 mg/dL (0-0.2); Bilirubin Total 1.6 mg/dL (0.2-1.0); Glucose Level 118 mg/dL (74-106); Lipase 52 U/L (73-393); Potassium 3.6 mmol/L (3.5-5.1); Protein, Total 7.9 g/dL (6.4-8.2); Sodium Level 138 mmol/L (136-145)
[2019-08-09] MEDS ORDERED: KCL 20 MEQ/100 mL IVPB 20 MEQ/100 ML BAG IV SCH (05:00)
[2019-08-09] MEDS: D5 0.45 NS 1,000 ML IV SCH (06:46)
[2019-08-09 08:19] VITALS: O2SAT 97
[2019-08-09 08:31] VITALS: BP 126/75; TEMP 97.3
[2019-08-09] MEDS: ENOXAPARIN 40 MG/0.4 ML SQ SCH (08:44)
--- NOTE | 2019-08-09 08:58 | RAD REPORT ---
EXAM DESCRIPTION: MRI - Cholangiogram - 08/09/2019 8:34 am CLINICAL HISTORY: Cholelithiasis r/o CBD stone COMPARISON: Abdomen Exam Limited dated 08/08/2019 FINDINGS: Three-dimensional MRCP was performed using maximum intensity projection reconstruction on the same work station. No intrahepatic biliary tree dilatation is seen. The common bile duct is normal caliber without evide nce of retained stone, stricture or mass. The pancreatic duct is not pathologically dilated. The gallbladder is distended with a large stone present in the gallbladder neck region. Mild perichol ecystic fluid is also seen. No intra-abdominal abscess. No bowel obstruction or adenopathy. IMPRESSION: No evidence of common bile duct stone. Cholelithiasis with distended gallbladder and mild pericholecystic fluid evident. Acute cholecystitis is a possibility.
[2019-08-09] MEDS ORDERED: ONDANSETRON 4 MG/2 ML VIAL IV PRN (09:44)
--- NOTE | 2019-08-10 05:11 | DS ---
Date of Discharge: 08/09/2019 Is Support Analyst: Roland Jones M.D. with General Surgery. Admitting Diagnoses: 1.Abdominal pain in the right upper quadrant. 2.Gallstones with obstruction of the gallbladder. 3.Intractable nausea and vomiting. Discharge Diagnoses: 1.Right upper quadrant abdominal pain. 2.Cholelithiasis, symptomatic with obstruction. 3.Elevated LFTs. 4.Hyperbilirubinemia. 5.Obesity, BMI 35.7. 6.Intractable nausea and vomiting. Hospital Course: Patient is a 23-year-old female, comes into the hospital with abdominal discomfort, nausea, vomiting. Patient was found to have gallstones. Continue to have nausea and vomiting. She was admitted and surgery was consulted. Ultrasound of the abdomen showed cholelithiasis, gallbladde r distention indicating cholecystitis. Biliary tree was normal caliber, however, patient's total pete irubin and liver enzymes continue to trend up. She was symptomatic. Her white blood cell count was also elevated upon admission. She was started on IV antibiotics. General Surgery recommended transf er for ERCP despite no stone. MRCP showed no evidence of CBD, cholelithiasis with distended gallblad cassandra and mild pericholecystic fluid evident. Acute cholecystitis is a possibility according to the az an report. The patient continued to be tender and have pain. She was then transferred to [facility] . Dr. Barriga with GI is the accepting physician. She will receive ERCP and then possible return to [facility] after procedure. I spoke with Dr. Jones, he recommends that the patient may need to re main at [facility] for continued GI followup. We will discuss with Transfer center and Dr. Barriga isac or to accepting the patient. Physical Examination: General: Awake, alert, and oriented x3, ill-appearing female, obese. CV: S1, S2. Respiratory: Moving air well bilaterally. Abdomen: Soft, tenderness to palpation in right upper quadrant. No distention. Positive bowel soun ds. Extremities: No clubbing, cyanosis, edema. Neurologic: Nonfocal. Plan: The patient was transferred to [facility] for ERCP. Time Spent: Total time spent transferring the patient was 45 minutes. /MODGene Voice ID: [id number] Report ID: [id number]
== END 2019-08-09 11:50 | disposition short-term general hospital (02) ==
LOC: ER 21:01 → 4TH 08-08 00:26
PROVIDERS: ADMIT Hospitalist; ATTEND Hospitalist
DX: K80.21 Calculus of gallbladder without cholecystitis with obstruction (principal); R79.89 Other specified abnormal findings of blood chemistry; E80.6 Other disorders of bilirubin metabolism; E66.9 Obesity, unspecified; Z68.35 Body mass index [BMI] 35.0-35.9, adult
CPT/HCPCS: 36415; 74181; 76705; 80048; 80076; 81003; 81015; 83690; 83735; 84100; 84132; 85025; 85610; 85730; 87086; 87088; 96361; 96365; 96375; 99285; G0378; J1650; J2405; J2543; J7030; J7799

== ENCOUNTER 2021-10-09 17:43 | Emergency (ER) | payer OTHER, SELFPAY ==
--- OUTSIDE RECORDS SUMMARY | 2021-10-09 17:46 | XMS REPORT | Continuity of Care Document ---
:1995 Author Organization [facility] t Address [address] [place] [address] Care Team Providers Name Role Phone CARRIE CULVER Attending Clinician Unavailable CARRIE CULVER Admitting Clinician Unavailable Problems This patient has no known problems. Allergies, Adverse Reactions, Alerts This patient has no known allergies or adverse reactions. Medications This patient has no known medications. Procedures This patient has no known procedures. Results Test Description Test Time Test Comments Results Result [facility] e Comments [place], ERCP 2019-11-03 INTRA OP FINAL REPORT 08:10:00 IMAGINGReason for PATIENT ID: exam:->abnormal [id number] A imaging fluoroscopic unit was utilized for a procedure performed in the operating/procedure room. No interpretation was requested. Please refer to the operative or procedure report regarding findings. Please refer to PACS for patient radiation dose information. Signed: Grisel Paris MDReport Verified Date/Time: 11/03/2019 08:10:48 Reading Location: [facility] UE EXAM 2019-08-15 Surgical Pathology 23:32:00 Report Case: [id number] Authorizing Provider: Lanie Caruso MD Collected: 08/10/2019 1122 Ordering Location: [facility] PERIOPERATIVE Received: 08/10/2019 1428 SERVICES Pathologist: Olivia Rosenbaum MD Specimen: Gallbladder GALLBLADDER, CHOLECYSTECTOMY- ACUTE AND CHRONIC CHOLECYSTITIS- CHOLELITHIASIS Signing Pathologist Direct Phone Line: [phone] nically signed by Olivia Rosenbaum MD on 08/15/2019 at 11:32 [id number] thiasisGall bladderThe case has one part.Received in formalin labeled with the patient's name, accession number and "gallbladder" is a 9.5 x 4.3 x 1.3 cm previously in overall dimension gallbladder with a 1.9 cm linear staple line. A cystic duct is not grossly appreciated. The serosa is milton-pink, smooth, hyperemic, and displays multiple petechiae at the body and fundus. The specimen is opened to reveal a 2.8 x 1.5 x 1.5 cm, yellow-brown, bosselated calculus. Bile is not identified. The mucosa is red-pink and diffusely trabeculated. The wall measures up to 0.5 cm thick. Acid Operator sections are submitted as follows:Section code:A1-inked proximal margin and community engagement representative gallbladder neckA2-gallbladder neck and bodyPA/ew Performed.[facility], Department of Pathology, [address] [place] [id number], [facility], [address] [place] [address], [facility], Department of [facility], [address] [place] [id number], HEPATIC FUNCTION PANEL 2019-08-11 09:58:00 Test Item Value Reference Range Interpretation Comme nts TOTAL PROTEIN (BEAKER) (test code = 770) 7.3 gm/dL 6.0-8.3 ALBUMIN (BEAKER) (test code = 1145) 3.7 g/dL 3.5-5.0 BILIRUBIN TOTAL (BEAKER) (test code = 377) 0.7 mg/dL 0.2-1.2 BILIRUBIN DIRECT (BEAKER) (test code = 706) 0.3 mg/dL 0.1-0.5 ALKALINE PHOSPHATASE (BEAKER) (test code = 346) 64 U/L 40-150 AST (SGOT) (BEAKER) (test code = 353) 35 U/L 5-34 H ALT (SGPT) (BEAKER) (test code = 347) 52 U/L 6-55 CBC W/PLT COUNT & AUTO [id number] 05:38:00 Test Item Value Reference Range Interpretation Comments WHITE BLOOD CELL COUNT (BEAKER) 12.4 K/ L 3.5-10.5 H (test code = 775) RED BLOOD CELL COUNT (BEAKER) 4.14 M/ L 3.93-5.22 (test code = 761) HEMOGLOBIN (BEAKER) (test code = 9.4 GM/DL 11.2-15.7 L 410) HEMATOCRIT (BEAKER) (test code = 31.3 % 34.1-44.9 L 411) MEAN CORPUSCULAR VOLUME (BEAKER) 75.6 fL 79.4-94.8 L (test code = 753) MEAN CORPUSCULAR HEMOGLOBIN 22.7 pg 25.6-32.2 L (BEAKER) (test code = 751) MEAN CORPUSCULAR HEMOGLOBIN CONC 30.0 GM/DL 32.2-35.5 L (BEAKER) (test code = 752) RED CELL DISTRIBUTION WIDTH 17.6 % 11.7-14.4 H (BEAKER) (test code = 412) PLATELET COUNT (BEAKER) (test 296 K/CU MM 150-450 code = 756) MEAN PLATELET VOLUME (BEAKER) 10.7 fL 9.4-12.3 (test code = 754) NUCLEATED RED BLOOD CELLS 0 /100 WBC 0-0 (BEAKER) (test code = 413) NEUTROPHILS RELATIVE PERCENT 73 % (BEAKER) (test code = 429) LYMPHOCYTES RELATIVE PERCENT 19 % (BEAKER) (test code = 430) MONOCYTES RELATIVE PERCENT 7 % (BEAKER) (test code = 431) EOSINOPHILS RELATIVE PERCENT 0 % (BEAKER) (test code = 432) BASOPHILS RELATIVE PERCENT 0 % (BEAKER) (test code = 437) NEUTROPHILS ABSOLUTE COUNT 9.02 K/ L 1.56-6.13 H (BEAKER) (test code = 670) LYMPHOCYTES ABSOLUTE COUNT 2.32 K/ L 1.18-3.74 (BEAKER) (test code = 414) MONOCYTES ABSOLUTE COUNT (BEAKER) 0.91 K/ L 0.24-0.36 H (test code = 415) EOSINOPHILS ABSOLUTE COUNT 0.02 K/ L 0.04-0.36 L (BEAKER) (test code = 416) BASOPHILS ABSOLUTE COUNT (BEAKER) 0.04 K/ L 0.01-0.08 (test code = 417) IMMATURE GRANULOCYTES-RELATIVE 0 % 0-1 PERCENT (BEAKER) (test code = 2801) [id number] 05:32:00 Test Item Value Reference Range Interpretation Comments PHOSPHORUS (BEAKER) (test code = 3.2 mg/dL 2.3-4.7 604) [id number] 05:32:00 Test Item Value Reference Range Interpretation Comments MAGNESIUM (BEAKER) (test code = 2.0 mg/dL 1.6-2.6 627) BASIC METABOLIC [id number] 05:32:00 Test Item Value Reference Range Interpretation Comments SODIUM (BEAKER) 138 meq/L 136-145 (test code = 381) POTASSIUM (BEAKER) 4.0 meq/L 3.5-5.1 (test code = 379) CHLORIDE (BEAKER) 106 meq/L 98-107 (test code = 382) CO2 (BEAKER) (test 25 meq/L 22-29 code = 355) BLOOD UREA NITROGEN 5 mg/dL 7-21 L (BEAKER) (test code = 354) CREATININE (BEAKER) 0.71 mg/dL 0.57-1.25 (test code = 358) GLUCOSE RANDOM 81 mg/dL 70-105 (BEAKER) (test code = 652) CALCIUM (BEAKER) 9.2 mg/dL 8.4-10.2 (test code = 697) EGFR (BEAKER) (test 104 mL/min/1.73 ESTIM ATED GFR IS code = 1092) sq m NOT ACCURATE CREATININE CLEARANCE IN PREDICTING GLOMERULAR FILTRATION RATE . ESTIMATED GFR I S NOT APPLICABLE FOR DIALYSIS PATIEN TS. HEPATIC FUNCTION [id number] 07:16:00 Test Item Value Reference Range Interpretation Comments TOTAL PROTEIN (BEAKER) (test code = 7.8 gm/dL 6.0-8.3 770) ALBUMIN (BEAKER) (test code = 1145) 4.0 g/dL 3.5-5.0 BILIRUBIN TOTAL (BEAKER) (test code 1.1 mg/dL 0.2-1.2 = 377) BILIRUBIN DIRECT (BEAKER) (test 0.5 mg/dL 0.1-0.5 code = 706) ALKALINE PHOSPHATASE (BEAKER) (test 76 U/L 40-150 code = 346) AST (SGOT) (BEAKER) (test code = 58 U/L 5-34 H 353) ALT (SGPT) (BEAKER) (test code = 84 U/L 6-55 H 347) CBC W/PLT COUNT & AUTO [id number] 04:52:00 Test Item Value Reference Range Interpretation Comments WHITE BLOOD CELL COUNT (BEAKER) 8.8 K/ L 3.5-10.5 (test code = 775) RED BLOOD CELL COUNT (BEAKER) 4.45 M/ L 3.93-5.22 (test code = 761) HEMOGLOBIN (BEAKER) (test code = 10.1 GM/DL 11.2-15.7 L 410) HEMATOCRIT (BEAKER) (test code = 33.1 % 34.1-44.9 L 411) MEAN CORPUSCULAR VOLUME (BEAKER) 74.4 fL 79.4-94.8 L (test code = 753) MEAN CORPUSCULAR HEMOGLOBIN 22.7 pg 25.6-32.2 L (BEAKER) (test code = 751) MEAN CORPUSCULAR HEMOGLOBIN CONC 30.5 GM/DL 32.2-35.5 L (BEAKER) (test code = 752) RED CELL DISTRIBUTION WIDTH 16.9 % 11.7-14.4 H (BEAKER) (test code = 412) PLATELET COUNT (BEAKER) (test 292 K/CU MM 150-450 code = 756) MEAN PLATELET VOLUME (BEAKER) 10.6 fL 9.4-12.3 (test code = 754) NUCLEATED RED BLOOD CELLS 0 /100 WBC 0-0 (BEAKER) (test code = 413) NEUTROPHILS RELATIVE PERCENT 68 % (BEAKER) (test code = 429) LYMPHOCYTES RELATIVE PERCENT 21 % (BEAKER) (test code = 430) MONOCYTES RELATIVE PERCENT 9 % (BEAKER) (test code = 431) EOSINOPHILS RELATIVE PERCENT 1 % (BEAKER) (test code = 432) BASOPHILS RELATIVE PERCENT 1 % (BEAKER) (test code = 437) NEUTROPHILS ABSOLUTE COUNT 5.99 K/ L 1.56-6.13 (BEAKER) (test code = 670) LYMPHOCYTES ABSOLUTE COUNT 1.83 K/ L 1.18-3.74 (BEAKER) (test code = 414) MONOCYTES ABSOLUTE COUNT (BEAKER) 0.81 K/ L 0.24-0.36 H (test code = 415) EOSINOPHILS ABSOLUTE COUNT 0.06 K/ L 0.04-0.36 (BEAKER) (test code = 416) BASOPHILS ABSOLUTE COUNT (BEAKER) 0.05 K/ L 0.01-0.08 (test code = 417) IMMATURE GRANULOCYTES-RELATIVE 0 % 0-1 PERCENT (BEAKER) (test code = 2801) [id number] 03:59:00 Test Item Value Reference Range Interpretation Comments MAGNESIUM (BEAKER) (test code = 1.9 mg/dL 1.6-2.6 627) BASIC METABOLIC [id number] 03:59:00 Test Item Value Reference Range Interpretation Comments SODIUM (BEAKER) 137 meq/L 136-145 (test code = 381) POTASSIUM (BEAKER) 3.7 meq/L 3.5-5.1 (test code = 379) CHLORIDE (BEAKER) 105 meq/L 98-107 (test code = 382) CO2 (BEAKER) (test 24 meq/L 22-29 code = 355) BLOOD UREA NITROGEN 3 mg/dL 7-21 L (BEAKER) (test code = 354) CREATININE (BEAKER) 0.72 mg/dL 0.57-1.25 (test code = 358) GLUCOSE RANDOM 87 mg/dL 70-105 (BEAKER) (test code = 652) CALCIUM (BEAKER) 9.4 mg/dL 8.4-10.2 (test code = 697) EGFR (BEAKER) (test 102 mL/min/1.73 ESTIM ATED GFR IS code = 1092) sq m NOT ACCURATE CREATININE CLEARANCE IN PREDICTING GLOMERULAR FILTRATION RATE . ESTIMATED GFR I S NOT APPLICABLE FOR DIALYSIS PATIEN TS. [id number] 03:59:00 Test Item Value Reference Range Interpretation Comments PHOSPHORUS (BEAKER) (test code = 4.0 mg/dL 2.3-4.7 604) SCREEN, [id number] 20:38:00 Test Item Value Reference Range Interpretation Comments TEST URINE (BEAKER) (test Negative code = 583) [id number] 20:25:00 Test Item Value Reference Range Interpretation Comments PHOSPHORUS (BEAKER) (test code = 3.5 mg/dL 2.3-4.7 604) [id number] 20:25:00 Test Item Value Reference Range Interpretation Comments MAGNESIUM (BEAKER) (test code = 1.9 mg/dL 1.6-2.6 627) BASIC METABOLIC [id number] 20:25:00 Test Item Value Reference Range Interpretation Comments SODIUM (BEAKER) 136 meq/L 136-145 (test code = 381) POTASSIUM (BEAKER) 3.6 meq/L 3.5-5.1 (test code = 379) CHLORIDE (BEAKER) 103 meq/L 98-107 (test code = 382) CO2 (BEAKER) (test 27 meq/L 22-29 code = 355) BLOOD UREA NITROGEN 2 mg/dL 7-21 L (BEAKER) (test code = 354) CREATININE (BEAKER) 0.76 mg/dL 0.57-1.25 (test code = 358) GLUCOSE RANDOM 102 mg/dL 70-105 (BEAKER) (test code = 652) CALCIUM (BEAKER) 9.6 mg/dL 8.4-10.2 (test code = 697) EGFR (BEAKER) (test 96 mL/min/1.73 ESTIMA BRITTANY GFR IS code = 1092) sq m NOT ACCURATE CREATININE CLEARANCE IN PREDICTING GLOMERULAR FILTRATION RATE . ESTIMATED GFR I S NOT APPLICABLE FOR DIALYSIS PATIEN TS. PROTHROMBIN [id number] 20:19:00 Test Item Value Reference Range Interpretation Comments PROTIME (BEAKER) (test code = 15.0 seconds 11.9-14.2 H 759) INR (BEAKER) (test code = 370) 1.2 <=5.9 Effective 02/24/2019: PT Reference Range ChangeNew: 11.9-14.2 Previous: 11.7- 14.7RECOMMENDED COUMADIN/WARFARIN INR THERAPY RANGESSTANDARD DOSE: 2.0-3.0 Includes: PROPHYLAXIS for venous thrombosis, systemic embolization; TREATMENT for venous thrombosis and/or pulmonary embolus.HIGH RISK: Target INR is2.5-3.5 for patients wiht mechanical heart valves.CBC W/PLT COUNT & AUTO [id number] 20:05:00 Test Item Value Reference Range Interpretation Comments WHITE BLOOD CELL COUNT (BEAKER) 9.8 K/ L 3.5-10.5 (test code = 775) RED BLOOD CELL COUNT (BEAKER) 4.32 M/ L 3.93-5.22 (test code = 761) HEMOGLOBIN (BEAKER) (test code = 9.7 GM/DL 11.2-15.7 L 410) HEMATOCRIT (BEAKER) (test code = 32.3 % 34.1-44.9 L 411) MEAN CORPUSCULAR VOLUME (BEAKER) 74.8 fL 79.4-94.8 L (test code = 753) MEAN CORPUSCULAR HEMOGLOBIN 22.5 pg 25.6-32.2 L (BEAKER) (test code = 751) MEAN CORPUSCULAR HEMOGLOBIN CONC 30.0 GM/DL 32.2-35.5 L (BEAKER) (test code = 752) RED CELL DISTRIBUTION WIDTH 16.9 % 11.7-14.4 H (BEAKER) (test code = 412) PLATELET COUNT (BEAKER) (test 292 K/CU MM 150-450 code = 756) MEAN PLATELET VOLUME (BEAKER) 10.5 fL 9.4-12.3 (test code = 754) NUCLEATED RED BLOOD CELLS 0 /100 WBC 0-0 (BEAKER) (test code = 413) NEUTROPHILS RELATIVE PERCENT 70 % (BEAKER) (test code = 429) LYMPHOCYTES RELATIVE PERCENT 22 % (BEAKER) (test code = 430) MONOCYTES RELATIVE PERCENT 8 % (BEAKER) (test code = 431) EOSINOPHILS RELATIVE PERCENT 0 % (BEAKER) (test code = 432) BASOPHILS RELATIVE PERCENT 0 % (BEAKER) (test code = 437) NEUTROPHILS ABSOLUTE COUNT 6.80 K/ L 1.56-6.13 H (BEAKER) (test code = 670) LYMPHOCYTES ABSOLUTE COUNT 2.14 K/ L 1.18-3.74 (BEAKER) (test code = 414) MONOCYTES ABSOLUTE COUNT (BEAKER) 0.73 K/ L 0.24-0.36 H (test code = 415) EOSINOPHILS ABSOLUTE COUNT 0.04 K/ L 0.04-0.36 (BEAKER) (test code = 416) BASOPHILS ABSOLUTE COUNT (BEAKER) 0.03 K/ L 0.01-0.08 (test code = 417) IMMATURE GRANULOCYTES-RELATIVE 0 % 0-1 PERCENT (BEAKER) (test code = 3981)
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
[2021-10-09 20:56] VITALS: BP 132/70; TEMP 98.4; O2SAT 100
== END 2021-10-09 20:18 | disposition home or self-care (01) ==
LOC: ER 17:43
DX: S46.012A Strain of muscle(s) and tendon(s) of the rotator cuff of left shoulder, initial encounter (principal); V43.63XA Car passenger injured in collision with pick-up truck in traffic accident, initial encounter
CPT/HCPCS: 71046; 99283

== ENCOUNTER 2024-01-06 12:26 | Emergency (ER) | payer OTHER ==
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
[2024-01-06 14:44] VITALS: BP 120/76; TEMP 97.8; O2SAT 97
== END 2024-01-06 14:20 | disposition home or self-care (01) ==
LOC: ER 12:26
DX: M25.512 Pain in left shoulder (principal); M54.2 Cervicalgia; V49.50XA Passenger injured in collision with unspecified motor vehicles in traffic accident, initial encounter
CPT/HCPCS: 99283